=== PATIENT | female | born 1945 | race Caucasian/White ===

== ENCOUNTER 2019-03-27 00:22 | Inpatient (IN) | payer MEDICARE, OTHER ==
[2019-03-27] MEDS ORDERED: dilTIAZem HCL 25 MG/5 ML VIAL IVP ONE (00:35)
[2019-03-27] MEDS ORDERED: dilTIAZem HCL 125 MG in 0.9 % SODIUM CHLORIDE 100 ML IV ONE ×4 (00:37→10:53)
--- NOTE | 2019-03-27 00:41 | ED Physician Documentation ---
Chest Pain - HISTORIAN Historian: patient - HPI Stated Complaint: chest pressure Chief Complaint: Chest Pain Additional Information: Patient presents to ED with chest pressure that started around midnight. Patient states the chest pressure woke her up. The chest pressure is on the left side, 8/10, nonradiating with no associated symptoms. She has a history of atrial fibrillation and take Metoprolol 50mg daily. Patient reports aortic valve replacement in 2007. She is not on anticoagulation. Timing: sudden onset Duration: sudden-onset Last known Well Date: 03/26/19 Last Known Well Time: 23:59 Last known Well Code/Unknown Code: Known Context: sleep Severity: severe Quality: pressure (10/10) Chest Pain Radiation: no radiation Chest Pain Signs/Symptoms: denies: nausea, vomiting Worsened By: nothing Relieved By: nothing - ROS CONST: none MS/LYMPH: none GI/: none EYES/ENT: none SKIN/ENDO: none NEURO/PSYCH: none - PAST HX AR risk factors: other (atrial fibrillation, valve replacement) DVT/PE Risk Factors: none TAD/AAA risk factors: none Neuro deficit: none GI disease: none Lung disease: none Surgeries/Procedures: other (heart valve replacement) Allergies/Adverse Reactions: Allergies Allergy/AdvReac Type Severity Reaction Status Date / Time No Known Allergies Allergy Verified 03/27/19 01:13 Home Medications: Ambulatory Orders Medication Instructions Recorded Unobtainable 03/27/19 - SOCIAL HX Smoking History: non-smoker Alcohol Use: none Drug Use: none - FAMILY HX Family HX: none - VITAL SIGNS Vital Signs: Vital Signs Temp Pulse Resp BP Pulse Ox 134/72 09/02/13 10:40 - REVIEWED ASSESSMENTS Nursing Assessment Reviewed: Yes Vitals Reviewed: Yes Progress - Progress Progress: 0139 HR 115 on Cardizem drip at 15mg/hr. Discussed admission with Dr. Yee, he agrees with admission. - EKG/XRAY/CT Comments: 034 Atrial fibrillation 152 bpm ED Results Lab/Radiology - Lab Results Lab Results: WBC 9.4, Hgb 12.3, Plt 269 Sodium 141, K+3.8, Cl 99, CO2 28, Glucose 156, Bun 18, Cr 1.25 LFTs WNL Trop 0.016, BNP 744 - Radiology Radiology Impressions: Report Submission Date: Mar 27, 2019 1:05:03 AM CDT Patient Study Name: STEPHEN SHARP Date: Mar 27, 2019 12:38:07 AM CDT Modality Type: DX Gender: F Description: CHEST 1VIEW : 45 Institution: [facility] Physician: ROBERT YOST Portable chest Clinical history: Chest pain. Findings: Examination of the chest in single portable AP view demonstrates the lungs to be clear. Cardiac silhouette is enlarged and aorta is atherosclerotic. There are multiple sternotomy wires. Monitor leads superimpose the chest. Impression: 1. Postoperative chest. 2. Aortic atherosclerosis. 3. No active disease. Electronically signed on Mar 27, 2019 1:05:03 AM CDT by: Carlitos Horton - Orders Orders: ED Orders Category Date Time Status Place IV Lock 1T Care 03/27/19 00:35 Ordered CHEST 1VIEW [RAD] Stat Exams 03/27/19 Ordered CBC/PLATELET/DIFF Routine Lab 03/27/19 Ordered CMP Routine Lab 03/27/19 Ordered NT BNP Stat Lab 03/27/19 Ordered TROPONIN I Stat Lab 03/27/19 Ordered DILTIAZEM IVPB 1MG/mL @ 15 MLS/HR (125ml) Med 03/27/19 00:37 Ordered dilTIAZem HCL [Cardizem] 125 mg 0.9 % Sodium Chloride [Normal Saline] 100 ml IV NOW dilTIAZem HCL [Cardizem] Med 03/27/19 00:35 Once 20 mg IVP STAT ONE EKG WITH COMPARISON Stat Ther 03/27/19 Ordered Chest Pain Physical Exam - EXAM General Appearance: no acute distress, alert EENT: EJ Neck: no carotid bruit Respiratory: no resp. distress, chest non-tender, nml breath sounds CVS: irregularly irreg. rhythm, tachycardia Abdomen: soft, normal bowel sounds Skin: warm/dry, normal color Extremities: non-tender, edema (trace lower extremity edema bilaterally) Neuro: oriented X3, mood/affect nml Discharge Clincal Impression: Atrial fibrillation with RVR Referrals: Primary Doctor,No [Primary Care Provider] - 2 Days Comments: Admit Acute to Dr. Yee Condition: Stable Disposition: ADMITTED INPATIENT Decision to Admit: [id number] Date of Decison to Admit: 03/27/19 Decision Time: 01:38
--- NOTE | 2019-03-27 01:08 | Diagnostic Imaging Report ---
PATIENT MR#: [id number] PATIENT PATIENT NAME: STEPHEN SHARP DATE OF : 1945 REFERRING PHYSICIAN: Sophia Lujan EXAM DATE: 03/27/2019 ACCESSION NUMBER: [id number] EXAM DESCRIPTION: CHEST 1VIEW Portable chest Clinical history: Chest pain. Findings: Examination of the chest in single portable AP view demonstrates the lungs to be clear. C ardiac silhouette is enlarged and aorta is atherosclerotic. There are multiple sternotomy wires. Monitor leads superi mpose the chest. Impression: 1. Postoperative chest. 2. Aortic atherosclerosis. 3. No active disease. Read by: Dr. Carlitos Horton Transcribed by: Transcribed Date: Electronically signed by: Dr. Carlitos Horton Date signed: 03/27/2019 1:07:33 AM
[2019-03-27] MEDS ORDERED: DOCUSATE SODIUM 100 MG CAPSULE PO PRN (01:52)
[2019-03-27] MEDS ORDERED: ONDANSETRON HCL/PF 4 MG/ 2ML VIAL IVP PRN (01:52)
[2019-03-27] MEDS ORDERED: ACETAMINOPHEN 325 MG TABLET PO PRN (01:52)
[2019-03-27] MEDS ORDERED: MAG HYDROX/ALUMINUM HYD/SIMETH 30 ML UDC PO PRN (01:52)
[2019-03-27] MEDS ORDERED: HYDROcodone /APAP 5/325 1 EACH TABLET PO PRN (01:52)
[2019-03-27] MEDS ORDERED: LORazepam 2 MG/ML VIAL IV PRN (01:52)
[2019-03-27 03:02] VITALS: BMI 74.0
[2019-03-27] MEDS: HEPARIN SODIUM 5000 UNIT/1 ML SQ SCH ×2 (05:20→12:41)
[2019-03-27 07:05] LABS: BASOPHILS % 0.5 % (0.0-1.5); NEUTROPHILS # 5.1 # k/uL (1.4-7.7)
[2019-03-27 07:07] LABS: eGFR (Non-African) > 60
--- NOTE | 2019-03-27 08:17 | History and Physical Report ---
History of Present Illnes - History of Present Illness Reason for Visit: New onset A fib History of Present Illness: 73yo who awoke up last night with some chest pressure. Patient came to the ED last night and was found to be in atrial fib with RVR. Has been having some swelling in her legs some. Has been having some mild SOB but has been stable. Has had some episodes of heart palpitations. Lasts minutes at a time. No syncopal or near syncopal episodes. - Past Medical History Cardiac: AFIB, HTN Pulmonary: denies: COPD, Pulmonary embolus Endocrine: Diabetes (type 2, last a1c 6.4), Other (pancreatitis) - Past Surgical History Past Surgical History: Cholecystectomy, Hysterectomy, Other (Bovine aortic valve replacement, ovarian cyst, small blowel obstruction secondary to scar tissue) - Past Family History Mother Family History: (90yo, advance age) Father Family History: CAD, (CAD) Sister 1 Family History: Other (dementia) - Past Social History Smoke: No Occupation: retired clerical Alcohol: Rare Drugs: None Lives: With Family Domestic Violence: Negative - Health Maintenance Health Maintenance: Cholesterol, Pneumococcal Vaccine. denies: Influenza Vaccine Influenza Vaccine: No Pneumonia Vaccine: Yes Resuscitation Status: Resusciation Status Resuscitation Status Full Code - Unable to Obtain History Unable to Obtain: No Review of Systems - Review of Systems Constitutional: negative: Fever, Chills Eyes: negative: pain ENT: negative: Ear Pain, Ear Discharge, Nose Pain, Nose Discharge, Nose Congestion, Mouth Pain, Throat Pain, Throat Swelling Respiratory: negative: Cough, Shortness of Breath, Hemoptysis, SOB with Excertion, Pleuritic Pain, Wheezing Cardiovascular: Chest Pain, Palpitations. negative: Orthopnea, Paroxysmal Noc. Dyspnea, Edema, Light Headedness Gastrointestinal: negative: Nausea, Vomiting, Abdominal Pain, Diarrhea, Const ipation, Melena, Hematochezia Genitourinary: negative: Dysuria, Frequency, Incontinence, Hematuria Musculoskeletal: negative: Back Pain Skin: negative: Rash, Jaundice Neurological: negative: Weakness, Numbness, Incoordination, Change in Speech, Confusion, Seizures - Medications/Allergies Allergies/Adverse Reactions: Allergies Allergy/AdvReac Type Severity Reaction Status Date / Time No Known Allergies Allergy Verified 03/27/19 01:13 Home Medications: Home Medications Aspirin [Aspir-Low] 81 mg PO DAILY 03/27/19 Atorvastatin Calcium 20 mg PO DAILY 03/27/19 Calcium Carbonate/Vitamin D3 [Calcium 500-Vit D3 600 Tablet] 1 each PO DAILY 03/27/19 Metformin HCl 1,000 mg PO DAILY 03/27/19 Metoprolol Tartrate [Lopressor] 75 mg PO DAILY 03/27/19 Omeprazole 20 mg PO DAILY 03/27/19 Current Inpatient Medications: Current Inpatient Medications Acetaminophen (Tylenol) 650 mg PO Q4H PRN PRN Reason: Fever >101 Stop: 04/26/19 01:51 Hydrocodone Bitart/Acetaminophen ([place] 5/325) 1 each PO Q4H PRN PRN Reason: Severe Pain (Score 8-10) Stop: 04/26/19 01:51 Al Hydrox/Mg Hydrox/Simethicone (Mylanta) 30 ml PO Q6 PRN PRN Reason: Heartburn Stop: 04/26/19 01:51 Docusate Sodium (Colace) 100 mg PO DAILY PRN PRN Reason: Constipation Stop: 04/26/19 01:51 Heparin Sodium (Porcine) (Heparin) 5,000 unit SQ Q8 [facility] Stop: 04/26/19 04:59 Last Admin: 03/27/19 05:20 Dose: 5,000 unit Diltiazem HCl 125 mg/ Sodium (Chloride) 125 mls @ 10 mls/hr IV NOW ONE; Protocol Stop: 03/27/19 19:05 Last Admin: 03/27/19 06:30 Dose: 10 ml/hr, 10 mls/hr Lorazepam (Ativan) 0.5 mg IV Q8H PRN PRN Reason: Anxiety Stop: 04/26/19 01:51 Metoprolol Succinate (Toprol Xl) 50 mg PO DAILY [facility] Stop: 04/26/19 08:59 Miscellaneous (Chem Sticks) 1 each CHEMQID [facility]; Protocol Stop: 04/26/19 07:29 Last Admin: 03/27/19 05:21 Dose: 1 each Ondansetron HCl (Zofran) 4 mg IVP Q6H PRN PRN Reason: Nausea / Vomiting Stop: 04/26/19 01:51 Exam - Exam Vital Signs: Vital Signs (72 hours) 03/27/19 03/27/19 03/27/19 00:30 01:20 01:48 Temperature 97.4 F L Pulse Rate 117 H Pulse Rate [ 145 H 56 L Left Pulse ox] Respiratory 16 16 Rate Blood Pressure [Left Arm] Blood Pressure 100/61 116/59 [Right Arm] O2 Sat by Pulse 98 95 94 Oximetry 03/27/19 03/27/19 03/27/19 01:55 02:00 02:20 Temperature 97.4 F L Pulse Rate 54 L Pulse Rate [ 94 H 94 H Left Pulse ox] Respiratory 16 16 Rate Blood Pressure 134/72 [Left Arm] Blood Pressure 116/59 116/59 [Right Arm] O2 Sat by Pulse 94 94 98 Oximetry 03/27/19 03/27/19 03/27/19 03:09 03:11 04:00 Temperature Pulse Rate 52 L 52 L Pulse Rate [ Left Pulse ox] Respiratory Rate Blood Pressure [Left Arm] Blood Pressure [Right Arm] O2 Sat by Pulse 98 Oximetry 03/27/19 03/27/19 04:05 06:00 Temperature 97.8 F Pulse Rate 52 L Pulse Rate [ 50 L Left Pulse ox] Respiratory 16 Rate Blood Pressure [Left Arm] Blood Pressure 117/53 [Right Arm] O2 Sat by Pulse 99 Oximetry General: Alert, Oriented to Person, Oriented to Place, Oriented to Time, Cooperative HEENT: Atraumatic, PERRLA, EOMI, Mouth Mucous membr. moist/[place], Nose Mucous membr. moist/[place] Neck: Normal Range of Motion Lungs: Clear to auscultation, Normal air movement, Speaks full Sentences Cardiovascular: Normal S1, Normal S2, No murmurs, Irregularly Irregular, Atrial Fib Abdomen: Normal bowel sounds, Soft, No tenderness, No hepatospenomegaly, No masses Integumentary: Normal, [place], Warm, Dry Extremities: No clubbing, No cyanosis, No edema, Normal pulses, No tenderness/swelling Neurological: Normal gait, Normal speech, Strength Equal Bilat, Normal tone, Sensation intact, Cranial nerves 3-12 NL, Reflexes 2+ Psych/Mental Status: Mental status NL, Mood NL, Appropriate Affect, Intact Judgment - Laboratory Results Laboratory Results: Laboratory Results 03/27/19 03/27/19 03/27/19 00:46 00:46 00:46 WBC 9.40 RBC 3.80 L Hgb 12.3 Hct 36.0 MCV 95.0 MCH 32.4 MCHC 34.3 RDW 11.9 Plt Count 269 Neut % (Auto) 54.5 Lymph % (Auto) 33.1 [place] % (Auto) 8.7 Eos % (Auto) 3.2 Baso % (Auto) 0.5 Neut # (Auto) 5.1 Lymph # (Auto) 3.1 [place] # (Auto) 0.8 Eos # (Auto) 0.3 Baso # (Auto) 0.1 Sodium 141 Potassium 3.8 Chloride 99 Carbon Dioxide 28 Anion Gap 17.8 BUN 18 H Creatinine 1.25 H Estimated Creat Clear 153 Est GFR ( Amer) > 60 Est GFR (Non-Af Amer) > 60 Glucose 156 H Calcium 9.6 Total Bilirubin 0.8 AST 63 H ALT 35 Alkaline Phosphatase 132 H Troponin I 0.016 NT-Pro-B Natriuret Pep 744.9 H Total Protein 7.6 Albumin 4.3 03/27/19 06:50 WBC RBC Hgb Hct MCV MCH MCHC RDW Plt Count Neut % (Auto) Lymph % (Auto) [place] % (Auto) Eos % (Auto) Baso % (Auto) Neut # (Auto) Lymph # (Auto) [place] # (Auto) Eos # (Auto) Baso # (Auto) Sodium Potassium Chloride Carbon Dioxide Anion Gap BUN Creatinine Estimated Creat Clear Est GFR ( Amer) Est GFR (Non-Af Amer) Glucose Calcium Total Bilirubin AST ALT Alkaline Phosphatase Troponin I 0.070 H NT-Pro-B Natriuret Pep Total Protein Albumin Assessment/Plan - Assessment/Plan (1) Atrial fibrillation with RVR Status: Acute Assessment: Patient is on cardizem drip, will be weaned to oral cardizem. Tolerating it well with metoprolol (2) Controlled type 2 diabetes mellitus Status: Chronic Qualifiers: Diabetes mellitus watermelon inspector insulin use: without watermelon inspector use Diabetes mellitus complication status: without complication Qualified Code(s): E11.9 - Type 2 diabetes mellitus without complications Assessment: continue home medications (3) Essential hypertension Status: Chronic Narrative Support Text: continue home medications VTE Assessment - RISK FACTOR SCORE VTE <18 YEARS OF AGE: PATIENT IS < 18 YEARS OF AGE VTE RISK FACTOR SCORES: AGE OVER 60 YEARS, ANTICIPATED BED CONFINEMENT OR IMMOBILIZATION > 24 HOURS
[2019-03-27] MEDS ORDERED: METOPROLOL SUCCINATE 50 MG TAB.ER.24H PO SCH (09:00)
[2019-03-27] MEDS: dilTIAZem HCL 30 MG TABLET PO SCH ×2 (12:34→17:42)
[2019-03-27] MEDS ORDERED: FUROSEMIDE 40 MG TABLET PO SCH (14:00)
[2019-03-27] MEDS ORDERED: metFORMIN HCl 500 MG TABLET PO SCH ×2 (17:00→21:00)
[2019-03-27 17:48] VITALS: BP 126/68
[2019-03-27] MEDS ORDERED: POTASSIUM CHLORIDE 10 MEQ TABLET.ER PO SCH (21:00)
[2019-03-27] MEDS ORDERED: ATORVASTATIN CALCIUM 20 MG TABLET PO SCH (21:00)
--- NOTE | 2019-04-02 16:33 | Discharge Summary ---
Discharge Summary - Discharge [facility] Admission Date: 03/27/19 (Acute) Discharge Date: 03/27/19 (Home) Discharge To: Home History of Present Illness: 73yo who awoke up last night with some chest pressure. Patient came to the ED last night and was found to be in atrial fib with RVR. Has been having some swelling in her legs some. Has been having some mild SOB but has been stable. Has had some episodes of heart palpitations in the past. Lasts minutes at a time. Patient denies any syncopal or near syncopal episodes. Once heart rate was controlled pressure feeling left. Patient denies any previous CAD problems. Condition at Discharge: Stable Home Medications: Ambulatory Orders Medication Instructions Recorded Aspirin [Aspir-Low] 81 mg PO DAILY 03/27/19 Atorvastatin Calcium 20 mg PO DAILY 03/27/19 Atorvastatin Calcium [Lipitor] 20 mg PO HS tablet 03/27/19 Calcium Carbonate/Vitamin D3 1 each PO DAILY 03/27/19 [Calcium 500-Vit D3 600 Tablet] Furosemide [Lasix] 40 mg PO BID #0 03/27/19 Metformin HCl 1,000 mg PO DAILY 03/27/19 Metoprolol Tartrate [Lopressor] 75 mg PO DAILY 03/27/19 Omeprazole 20 mg PO DAILY 03/27/19 Potassium Chloride 10 meq PO BID #0 03/27/19 Rivaroxaban [Xarelto] 20 mg PO PM #7 tablet 03/27/19 dilTIAZem HCL [Cardizem] 30 mg PO QID #28 tablet 03/27/19 Consultations this Visit: None Procedures this Visit: None Allergies/Adverse Reactions: Allergies Allergy/AdvReac Type Severity Reaction Status Date / Time No Known Allergies Allergy Verified 03/27/19 01:13 Discharge Summary: On admission to the ED patient with both with Cardizem. Once her rate was controlled patient was started on a Cardizem drip. Later on in the morning patient was transitioned over to oral Cardizem. Patient did subsequently convert back to a normal sinus rhythm. Patient had a CHADSvas score of 3 and was started on Eliquis for anticoagulation therapy.patient was advised of the risk and benefits of anticoagulation therapy. Patient was informed that the risk including possible G.I. bleeding, intracranial bleeding which could lead to a s troke or possible . Patient remained in a normal sinus rhythm. t the time of dismissal patient thyroid studies were pending. Patient was ambulating without any difficulties. It was felt that she could be further managed on an outpatient basis and was subsequently discharged home in stable condition. Patient blood sugars during her hospitalization remain stable and in the mid 100 range. Hypertension remain stable. - Final Diagnosis (1) Atrial fibrillation with RVR Problems: converted back to NSR. Patient started on oral cardizem (2) Essential hypertension Problems: stable on home meds (3) Controlled type 2 diabetes mellitus Problems: stable on home meds (4) On anticoagulant therapy Problems: Patient advised of the risk and benefits.
== END 2019-03-27 18:45 | disposition home or self-care (01) | DRG 310 ==
LOC: ED 00:22 → SOUTH 01:43
PROVIDERS: ADMIT Family Medicine; ATTEND Family Medicine
DX: I48.91 Unspecified atrial fibrillation (principal); I10 Essential (primary) hypertension; E11.9 Type 2 diabetes mellitus without complications; Z90.49 Acquired absence of other specified parts of digestive tract; Z90.710 Acquired absence of both cervix and uterus; Z95.3 Presence of xenogenic heart valve; Z79.899 Other long term (current) drug therapy; Z79.82 Long term (current) use of aspirin; Z79.84 Long term (current) use of oral hypoglycemic drugs
CPT/HCPCS: 36415; 71045; 80053; 83880; 84484; 85025; 93005; 99234; J1644; J3490; S1016